=== PATIENT | male | born 1960 | race Caucasian/White ===

== ENCOUNTER 2019-11-16 11:57 | Emergency (ER) | payer OTHER ==
[2019-11-16 12:01] VITALS: BP 138/81; PULSE 56; RESP 18; TEMP 98.1
[2019-11-16] MEDS ORDERED: PROPARACAINE 0.5% OPHTH DROPS 15 ML BTL LEFT EYE STA (12:51)
[2019-11-16] MEDS ORDERED: FLUORESCEIN STRIPS 1 MG STRIP LEFT EYE ONE (12:52)
[2019-11-16] MEDS ORDERED: ERYTHROMYCIN 5 MG/GM OPHTH OINT 1 GM TUBE BOTH EYES STA (13:29)
--- NOTE | 2019-11-16 13:42 | ED ---
General Adult HPI - General Chief complaint: Eye Problems Stated complaint: Eye issues Time Seen by Provider: 11/16/19 12:47 Source: patient, RN notes reviewed Mode of arrival: ambulatory Limitations: no limitations - History of Present Illness Initial comments: 59-year-old male presents to the emergency department for foreign body of the right eye. Patient states he was working as a [employer] 3 days ago and got something in his eye. States it has been there for about 3 days now. Patient denies visual changes but states his eye started to get more irritated last night. Patient denies any visual changes aside from more tearing the normal the right eye from the irritation. Patient is up-to-date on tetanus. Patient does not wear contacts.Patient has no other complaints at this time including shortness of breath, chest pain, abdominal pain, nausea or vomiting, headache, or visual changes. - Related Data Allergies Allergy/AdvReac Type Severity Reaction Status Date / Time No Known Allergies Allergy Verified 11/16/19 12:01 Review of Systems ROS Statement: Those systems with pertinent positive or pertinent negative responses have been documented in the HPI. ROS Other: All systems not noted in ROS Statement are negative. Past Medical History Past Medical History: No Reported History History of Any Multi-Drug Resistant Organisms: None Reported Past Surgical History: Hernia Repair Past Psychological History: No Psychological Hx Reported Smoking Status: Never smoker Past Alcohol Use History: Occasional Past Drug Use History: Unable to Obtain General Exam Limitations: no limitations General appearance: alert, in no apparent distress Head exam: Present: atraumatic, normocephalic, normal inspection Eye exam: Present: PERRL, EOMI, other (There is a small foreign body noted in the anterior cornea around 5:00.). Absent: scleral icterus, conjunctival injection, periorbital swelling ENT exam: Present: normal exam, mucous membranes moist Neck exam: Present: normal inspection, full ROM. Absent: tenderness, meningismus, lymphadenopathy Respiratory exam: Present: normal lung sounds bilaterally. Absent: respiratory distress, wheezes, rales, rhonchi, stridor Cardiovascular Exam: Present: regular rate, normal rhythm, normal heart sounds. Absent: systolic murmur, diastolic murmur, rubs, gallop, clicks GI/Abdominal exam: Present: soft, normal bowel sounds. Absent: distended, tenderness, guarding, rebound, rigid Neurological exam: Present: alert Course Vital Signs 11/16/19 12:00 Temperature 98.1 F Pulse Rate 56 L Respiratory 18 Rate Blood Pressure 138/81 O2 Sat by Pulse 98 Oximetry Procedures - Forgein Body Removal Eye Site: Right Location in eye(s): 5:00 Anesthetic Used: Proparacaine Foreign Body Suspected: Metal Forgein Body Removal Technique: Cotton Swab, Needle (catheter tip) Remaining Debris: Yes (poss rust ring) Patient Tolerated: no complications Medical Decision Making - Medical Decision Making Attempted to remove foreign body with cotton swab however there is some remaining debris around 5:00. Therefore an 18G catheter tip was used. I do believe all of the foreign body was removed however there is likely rust ring remaining as it has been in there for about 3 days. Patient will follow up with ophthalmology for removal. I did discuss the importance of this and he is agreeable. He will be treated with antibiotic ointment. No history of contact usage. He will return here for any worsening symptoms. Disposition Clinical Impression: Corneal foreign body Disposition: HOME SELF-CARE Condition: Good Instructions (If sedation given, give patient instructions): Eye Foreign Body (ED) Additional Instructions: Please apply antibiotic ointment every 6 hours for 7 days. Follow up with ophthalmology by calling tomorrow for an appointment. Tell them you have possible rust ring in the eye and need to be seen. Return to the emergency department for any other worsening symptoms. Is patient prescribed a controlled substance at d/c from ED?: No Referrals: Aris Ronquillo MD [Primary Care Provider] - 1-2 days Con Villarreal MD [STAFF PHYSICIAN] - 1-2 days Time of Disposition: 13:40
== END 2019-11-16 14:00 | disposition home or self-care (01) ==
LOC: EC 11:57
DX: T15.01XA Foreign body in cornea, right eye, initial encounter (principal); Y92.69 Other specified industrial and construction area as the place of occurrence of the external cause; Y99.0 Civilian activity done for income or pay
CPT/HCPCS: 65220; 99283